=== PATIENT | male | born 1960 | race Caucasian/White ===

== ENCOUNTER 2017-07-24 19:25 | Emergency (ER) | payer MEDICARE, OTHER ==
[2017-07-24 19:36] VITALS: BP 124/61
== END 2017-07-24 20:30 | disposition left against medical advice (07) ==
LOC: ER 19:25
DX: Z53.21 Procedure and treatment not carried out due to patient leaving prior to being seen by health care provider (principal)

== ENCOUNTER 2017-08-24 17:37 | Emergency (ER) | payer MEDICARE, OTHER ==
[2017-08-24 18:06] LABS: Hematocrit 39.1 % (42.0-52.0); Hemoglobin 13.3 gm/dL (13.5-18.0); Mean Cell Volume 90.7 fl (78-100); Mean Corpuscular Hemoglobin 30.9 pg (27-31); Platelet Count 335 K/mm3 (150-450); Red Blood Count 4.31 M/mm3 (4.7-6.0); Red Cell Distribution Width 13.6 % (11.5-14.0); White Blood Count 12.3 K/mm3 (4.0-10.5)
[2017-08-24 18:08] LABS: Total Cells Counted 100
[2017-08-24 18:20] LABS: Albumin * 3.3 gm/dl (3.4-5.0); Anion Gap 14.2 mmol/L (6.8-13.8); BUN/Creatinine Ratio 16.1 (9.0-21.6); Bilirubin, Total 0.2 mg/dL (0.0-1.1); Calcium * 8.8 mg/dL (7.9-10.9); Carbon Dioxide 26.7 mmol/L (24-32.6); Potassium 3.9 mmol/L (3.4-4.6); Total Protein 7.9 gm/dL (6.2-8.2)
[2017-08-24] MEDS ORDERED: IBUPROFEN 600 MG TABLET PO ONE (18:29)
[2017-08-24] MEDS ORDERED: IBUPROFEN 600 MG TABLET ONE (18:30)
[2017-08-24 18:36] LABS: Atypical (Reactive) Lymph 3 % (0-2); Eosinophil 1 % (0-3); Lymphocyte 39 % (20-51); Monocyte 5 % (0-9); Neutrophil 52 % (42-75); Neutrophil # 6.4 K/mm3 (1.3-6.0); Platelet Estimate Normal (NORMAL); RBC Morphology Normal (NORMAL)
--- NOTE | 2017-08-24 18:37 | ERNOTE ---
Dyspnea - Date Date of Service: 08/24/17 - General Presenting Symptoms: shortness of breath Time Seen by Provider: 08/24/17 17:46 Source: patient, family, RN notes reviewed Exam Limitations: no limitations - Immun/Allergies/Home Medications Immunizations: IMMUNIZATION HX Immunizations Up to Date Yes History of Influenza Vaccine No Allergies/Adverse Reactions: Allergies No Known Allergies Allergy (Verified 08/24/17 17:44) Home Medications: HOME MEDICATIONS Albuterol Sulfate [Albuterol Sulfate Hfa] 8.5 gm IH PRN PRN 08/23/13 [Last Taken Unknown] Clonazepam 1 mg PO BID 08/23/13 [Last Taken Unknown] Escitalopram Oxalate [Lexapro] 10 mg PO DAILY 08/23/13 [Last Taken Unknown] Levothyroxine Sodium [Synthroid] 25 mcg PO DAILY 08/23/13 [Last Taken Unknown] Ranitidine HCl 150 mg PO BID 08/23/13 [Last Taken Unknown] Multivitamins [Multivitamin Augustin] 1 cap PO DAILY 11/22/13 [Last Taken Unknown] Azithromycin [Zithromax] 250 mg PO DAILY #6 tablet 08/24/17 [Last Taken Unknown] predniSONE [Prednisone] 2 tab PO DAILY #14 tab 08/24/17 [Last Taken Unknown] - History of Present Illness Narrative: 57 year old male ambulatory to the ED for shortness of breath for the past month. He was recently diagnosed with mild COPD and has been trying to stop smoking. He reports that he has been having chills for the past couple of days. He also reports a productive cough. He was seen in the clinic approximately 2 weeks ago for a annual medicare exam. His labwork was unremarkable aside from his Hepatitis C and positive drug screen for THC. He has been using Dueneb qid. Treatment PLANT ATTENDANT OR ASSISTANT OPERATOR: none Initiating event: Reports: unknown Frequency of episodes: Reports: occassional episodes Modifying Factors - (Improves): Reports: rest Modifying Factors (Worsens): Reports: activity, cold Associated Symptoms-Dyspnea: Reports: fever/chills, chest pain/discomfort, cough , wheezing, anxiety. Denies: sweating, palpitations, leg/calf pain, ankle/leg swelling, dizziness, lightheadedness, weakness, tingling of hands/face, muscle spasms, loss of appetite Prior Treatment: Reports: recently seen, treated by physician. Denies: currently on antibiotics Review of Systems - Review of Systems Constitutional: Present: fever, chills, malaise. Absent: recent illness EYE: Present: no symptoms reported ENT: Absent: nose congestion, sore throat Respiratory: Present: shortness of breath, cough, wheezing. Absent: orthopnea, stridor Cardiology: Absent: chest pain, palpitations, edema Gastrointestinal/Abdominal: Absent: nausea, abdominal pain Genitourinary: Present: no symptoms reported Musculoskeletal: Absent: muscle pain, joint pain Skin: Absent: rash, lesions Neurological: Absent: headache, dizziness/light-headedness Endocrine: Present: no symptoms reported Hematologic/Lymphatic: Absent: easy bruising, easy bleeding Psych: Present: anxiety - Patient's Past Medical History Patient History - Medical: Anxiety, Depression, GERD, Hypothyroidism, Other - Hepatitis C Patient History - Cardiac/Respiratory: COPD, Pulmonary Embolism Patient History - Cancer: No Hx of Cancer Patient History - Surgical Procedures: Ear Tubes, Total Knee Replacement, T & A , Other, Orthopedic Patient History - Other: Other - Social History Living Situations: home Abuse History: No History of abuse Psych History: Psychiatric Hx, Hx of Anxiety, Hx of Depression, Hx of Schizophrenia, Current tx/ever been on anti-depressants or anti-anxiety meds Smoking Status: Current every day smoker Cigarettes Packs Per Day: 0.3 Alcohol Use: none Drug Use: marijuana - Immunizations Immunizations Up to Date: Yes History of Influenza Vaccine: No Physical Exam - Physical Exam General Appearance: Present: alert, no apparent distress, thin, other - Talking incessantly despite c/o dyspnea Ears, Nose, Throat: Present: normal ENT inspection, pharyngeal erythema. Absent : sinus pain/drainage, pharyngeal swelling, dry mucous membranes Neck: Present: normal inspection, nontender, supple Respiratory: Present: no respiratory distress, no accessory muscle use, chest nontender, lungs clear, decreased breath sounds, expiration (prolonged) Cardiovascular/Chest: Present: no murmur, tachycardia - with regular rhythm Extremity Exam: Present: normal inspection, no edema Neurological Exam: Present: alert, oriented, normal mood/affect, no motor/ sensory deficits Skin Exam: Present: normal color, warm/dry ED Progress - Results and Orders Patient's Lab Results:: I have reviewed the patient's lab results. - Vital Signs Patient's Vital Signs:: I have reviewed the patient's vital signs. Vital Signs: Vital Signs 08/24/17 08/24/17 08/24/17 17:40 18:19 18:22 Temperature 37.4 C Pulse Rate 122 H 118 H 119 H Respiratory 18 18 Rate Blood Pressure 127/76 127/67 O2 Sat by Pulse 99 97 Oximetry - X-Ray X-Ray #1 X-Ray: chest Interpretation: Interp. by me X-ray Comments: Mild hyperinflation noted, no consolidation or infiltrate - Progress/Reassessment Chief Complaint: Upper Respiratory Symptoms Progress:: Unchanged Departure Clinical Impression: COPD with acute exacerbation - Departure Disposition: Home Follow Up Needed Condition: Stable Instructions: Chronic Obstructive Pulmonary Disease Exacerbation, [id number] Additional Instructions: Continue your current medications and nebulizer treatments Follow up with your doctor if your symptoms continue, or return to the ER if symptoms worsen Stop smoking Referrals: Dariusz Lloyd DO [Primary Care Provider] - Prescriptions: Azithromycin [Zithromax] 250 mg PO DAILY #6 tablet predniSONE [Prednisone] 2 tab PO DAILY #14 tab
[2017-08-24 19:13] VITALS: BP 127/78
== END 2017-08-24 19:11 | disposition home or self-care (01) ==
LOC: ER 17:37
DX: J44.1 Chronic obstructive pulmonary disease with (acute) exacerbation (principal); K21.9 Gastro-esophageal reflux disease without esophagitis; E03.9 Hypothyroidism, unspecified; B19.20 Unspecified viral hepatitis C without hepatic coma; F41.8 Other specified anxiety disorders; F17.200 Nicotine dependence, unspecified, uncomplicated